=== PATIENT | male | born 1970 | race Caucasian/White ===

== ENCOUNTER 2024-05-07 09:00 | Day surgery (SDC) | payer OTHER ==
[~2024-05-07] VITALS: Ht 165.1 cm; Wt 78.5 kg
[~2024-05-07 09:00] MED LIST: AMPDEX5; AZELASTINE137 MCG/06; BUPR100; Cyclobenzaprine5 MG PO; DEXT10ER PO; DICY20 PO; GABA300 PO; IPRATROPIUM BRO15 ML; LISI5 PO; MULVITA; NS 500 ML IV ONE; OMEP20ER; ONDA4ODT MM; PROTONIX4010 PO; Prozac20 MG; Prozac20 MG PO; SUCR1 PO; TRAZ100; TRAZ50 PO; Vitamin D1000 UNI1
[2024-05-07] MEDS ORDERED: NS 500 ML IV ONE (10:01)
[2024-05-07] MEDS ORDERED: Midazolam HCl 1MG / ML 2ML Vial ONE (10:23)
[2024-05-07] MEDS ORDERED: FentaNYL Citrate 50 MCG/ML 2 ML Injection ONE ×2 (10:23→11:24)
[2024-05-07] MEDS ORDERED: propofoL 20 ML IV ONE ×2 (10:23→10:34)
[2024-05-07] MEDS ORDERED: Lidocaine HCl 2% 10 ML SDA INJ ONE ×2 (10:37)
[2024-05-07] MEDS ORDERED: Lidocaine HCl 2% 10 ML SDA ONE (10:52)
--- NOTE | 2024-05-07 11:36 | NUR ---
05/07/24 1136 Dom Rivera FENTANYL 25MCG IV GIVEN AT 1135 FOR LEFT ARM PAIN AT 10/14
[2024-05-07 12:56] VITALS: BP 133/88
== END 2024-05-07 12:35 | disposition home or self-care (01) ==
LOC: ORSCSDS 09:00
DX: G56.03 Carpal tunnel syndrome, bilateral upper limbs (principal); G56.22 Lesion of ulnar nerve, left upper limb; I10 Essential (primary) hypertension; G47.33 Obstructive sleep apnea (adult) (pediatric); F32.A Depression, unspecified; F43.10 Post-traumatic stress disorder, unspecified; Z87.891 Personal history of nicotine dependence; Z79.899 Other long term (current) drug therapy
CPT/HCPCS: J2003; J2250; J2704; J3010; J7040

== ENCOUNTER 2024-06-11 08:12 | Day surgery (SDC) | payer OTHER ==
[~2024-06-11] VITALS: Ht 165.1 cm; Wt 74.9 kg
[~2024-06-11 08:12] MED LIST changes: +Lidocaine 1%-Epineph 1:100000 20 ML MDV ONE; -NS 500 ML IV ONE; +Norco 5-325 Ta1 EACH PO
[2024-06-11] MEDS ORDERED: ATROVENT HFA12.9 GM (08:35)
[2024-06-11] MEDS ORDERED: ESZO1 (08:35)
[2024-06-11] MEDS ORDERED: BUPR75 (08:36)
[2024-06-11] MEDS ORDERED: IBUP600 (08:36)
[2024-06-11] MEDS ORDERED: NS 500 ML IV ONE (08:51)
[2024-06-11] MEDS ORDERED: propofoL 20 ML IV ONE (09:03)
[2024-06-11] MEDS ORDERED: Midazolam HCl 1MG / ML 2ML Vial ONE (09:03)
[2024-06-11] MEDS ORDERED: FentaNYL Citrate 50 MCG/ML 2 ML Injection ONE (09:09)
[2024-06-11 09:33] VITALS: BP 123/65
== END 2024-06-11 09:53 | disposition home or self-care (01) ==
LOC: ORSCSDS 08:12
PROVIDERS: Orthopaedic Surgery
PROC: 01N54ZZ Release Median Nerve, Percutaneous Endoscopic Approach (ICD-10-PCS; principal; 2024-06-11 09:45)
DX: G56.01 Carpal tunnel syndrome, right upper limb (principal); G47.33 Obstructive sleep apnea (adult) (pediatric); K21.9 Gastro-esophageal reflux disease without esophagitis; I10 Essential (primary) hypertension; F43.10 Post-traumatic stress disorder, unspecified; F32.A Depression, unspecified; Z87.891 Personal history of nicotine dependence; Z79.899 Other long term (current) drug therapy
CPT/HCPCS: J2250; J2704; J3010